=== PATIENT | female | born 1990 | race African-American/Black ===

== ENCOUNTER 2022-04-18 20:25 | Emergency (ER) | payer MEDICAID, OTHER ==
[~2022-04-18] VITALS: Ht 157.5 cm; Wt 73.0 kg
[~2022-04-18 20:25] MED LIST: HYDR-3512; IBUP200C2
[2022-04-18 20:32] VITALS: BP 127/84
[2022-04-18] MEDS ORDERED: ACETAMINOPHEN 325MG TABLET PO ONE (21:45)
[2022-04-18] MEDS ORDERED: ONDANSETRON 4MG ODT PO ONE (21:45)
[2022-04-19] MEDS ORDERED: METH-653 MT (00:13)
[2022-04-19] MEDS ORDERED: IBUP-2029 MT (00:13)
[2022-04-19] MEDS ORDERED: KETOROLAC 30MG/ML VIAL IM ONE (00:15)
[2022-04-19] MEDS ORDERED: METHOCARBAMOL 500MG TABLET PO ONE (00:15)
[2022-04-19] MEDS ORDERED: ACETAMINOPHEN 325MG TABLET PO NR (00:30)
[2022-04-19] MEDS ORDERED: ONDANSETRON 4MG ODT PO NR (00:30)
== END 2022-04-19 00:50 | disposition home or self-care (01) ==
LOC: ER 20:45
DX: S09.8XXA Other specified injuries of head, initial encounter (principal); S06.0XAA Concussion with loss of consciousness status unknown, initial encounter; S43.491A Other sprain of right shoulder joint, initial encounter; I49.8 Other specified cardiac arrhythmias; W01.0XXA Fall on same level from slipping, tripping and stumbling without subsequent striking against object, initial encounter; Y93.9 Activity, unspecified; Y92.9 Unspecified place or not applicable
CPT/HCPCS: 70450; 72125; 73030; 93005; 99285; J1885; Q0162; Z7610